=== PATIENT | female | born 1960 | race Caucasian/White ===

== ENCOUNTER 2023-11-24 19:47 | Emergency (ER) | payer OTHER, SELFPAY ==
[2023-11-24 19:52] VITALS: BP 164/92; PULSE 62; RESP 16; TEMP 36.1; O2SAT 95; BMI 23.8
--- NOTE | 2023-11-24 20:20 | CRLHL7_ITS ---
For Patients: As a result of the Century Cures Act, medical imaging exams and procedure reports are released immediately into your electronic medical record. You may view this report before your referring provider. If you have questions, please contact your health care provider. INDICATION: Left-sided abdominal pain. Nausea. TECHNIQUE: CT abdomen and pelvis acquired with 64 cc of Isovue 370 IV contrast. COMPARISON: None. FINDINGS: Lower chest: Unremarkable. Liver: Subcentimeter low-density in the left lobe likely represents an incidental cyst or hemangioma. Spleen: Unremarkable. Pancreas: Unremarkable. Gallbladder and bile ducts: No calcified stones or biliary ductal dilatation. Kidneys: Irregular 8 mm stone in the distal left ureter near the pelvic brim causes [id number] hydroureteronephrosis with urothelial enhancement and periureteral stranding. No focal renal parenchymal abnormality or perinephric fluid collection. Right kidney is unremarkable. Adrenal glands: Unremarkable. GI tract: Mild distal colonic diverticulosis without evidence of acute diverticulitis. Borderline dilated small bowel loops in the left abdomen anterior to the ureter may reflect mild ileus. No high-grade bowel obstruction. Normal appendix. No free air or free fluid. Lymph nodes: No pathologic lymphadenopathy. Vascular structures: Mild atherosclerotic disease. No abdominal aortic aneurysm. Pelvic Organs: Bladder as imaged is unremarkable. Hysterectomy. Bones: No acute or suspicious osseous abnormality. Degenerative changes at L5-S1 IMPRESSION: 1. Distal left ureteral stone measures 8 mm and causes mild to moderate hydroureteronephrosis. Urothelial enhancement and stranding may reflect superimposed infection. 2. No CT findings to strongly suggest pyelonephritis. No perinephric fluid collection. Dictated by Jass Webber MD @ 11/24/2023 9:25:45 PM Please note that all CT scans at this facility use dose modulation, iterative reconstruction, and/or weight-based dosing when appropriate to reduce radiation dose to as low as reasonably achievable. Dictated by: Jass Webber MD @ 11/24/2023 21:26:06 (Electronically Signed)
--- NOTE | 2023-11-24 20:21 | ED.ABDPAIN ---
HPI - Abdominal Pain General Chief Complaint: Abdominal Pain Stated Complaint: abdominal pain left side, vomiting Time Seen by Provider: 11/24/23 20:17 History of Present Illness HPI narrative: Patient is a 63-year-old woman comes in today with a 3-4 hours of crampy left-sided abdominal pain. She is prone to constipation and took some oral laxatives yesterday with good bowel movement this morning. However pain is become more severe in the left lower quadrant. She has had no nausea no vomiting no fevers no chills. She has no dysuria. Pain is localized to left lower quadrant and is dull. It seems to persist into her thigh and back. No other significant symptoms no recent travel. Related Data Home Medications ?Medication ?Instructions ?Recorded ?Confirmed bupropion HCl 150 mg tablet,12 hr 150 mg PO BID 11/24/23 11/24/23 sustained-release levothyroxine 100 mcg tablet 100 mcg PO DAILY 11/24/23 11/24/23 Allergies Allergy/AdvReac Type Severity Reaction Status Date / Time No Known Drug Allergies Allergy Verified 11/24/23 19:56 Review of Systems Status of ROS Reports: 10 or more systems reviewed and unremarkable except as noted in History and below Exam Narrative: Exam Narrative: EXAM GENERAL: Patient appears uncomfortable rolling back and forth in pain. EYES: No scleral icterus. ENT: Tympanic membranes and oropharynx normal. THYROID: no thyroid nodules or thyromegaly. LYMPH: No supraclavicular or cervical lymphadenopathy. SKIN: Visible skin seen during exam normal or with benign process only. EXT: No dependent lower extremity pedal edema. HEART: Regular rate and rhythm with no murmurs, rubs, or gallops. LUNGS: Clear to auscultation bilaterally with no crackles or wheezes. ABD: Soft, non tender, non distended. Minimal tenderness to palpation left lower quadrant rest of the abdominal exam is normal. PSYCH: Good eye contact, speech is not pressured. Const: Vital Signs, click to edit/add: Vital Signs - 24 hr 11/24/23 19:52 Temperature 97.0 F L Pulse Rate [Right Pulse Oximeter] 62 Respiratory Rate 16 Blood Pressure [Le ft Upper Arm] 164/92 H Pulse Oximetry 95 Oxygen Delivery Me thod Room Air Course Course ED Course: Patient is seen and examined. IV is placed normal saline given 4 mg of Zofran given 30 mg of Toradol given. UA CBC comprehensive metabolic panel amylase CT abdomen pelvis pending. Vital Signs Vital signs: Initial Vital Signs Temperature 97.0 F L 11/24/23 19:52 Temperature Source Temporal Artery Scan 11/24/23 19:52 Pulse Rate 62 11/24/23 19:52 Respiratory Rate 16 11/24/23 19:52 Blood Pressure 164/92 H 11/24/23 19:52 Blood Pressure Mean 116 H 11/24/23 19:52 Pulse Oximetry 95 11/24/23 19:52 Oxygen Delivery Method Room Air 11/24/23 19:52 Vital Signs Temperature 97.0 F L 11/24/23 19:52 Pulse Rate 62 11/24/23 19:52 Respiratory Rate 16 11/24/23 19:52 Blood Pressure 164/92 H 11/24/23 19:52 Pulse Oximetry 95 11/24/23 19:52 Oxygen Delivery Method Room Air 11/24/23 19:52 Temperature 97.0 F L 11/24/23 19:52 Pulse Rate 62 11/24/23 19:52 Respiratory Rate 16 11/24/23 19:52 Blood Pressure 164/92 H 11/24/23 19:52 Pulse Oximetry 95 11/24/23 19:52 Oxygen Delivery Method Room Air 11/24/23 19:52 Medications Administered Medications: Discontinued Medications Generic Name Dose Route Start Last Admin Trade Name Toni PRN Reason Stop Dose Admin Ketorolac Tromethamine 30 mg 11/24/23 20:20 11/24/23 20:52 Ketorolac 30 Mg/Ml Inj IVP 11/24/23 20:21 30 mg ONCE ONE Administration Ondansetron HCl 4 mg 11/24/23 20:20 11/24/23 20:53 Ondansetron 2 Mg/Ml Inj IVP 11/24/23 20:21 4 mg ONCE ONE Administration MDM - Abdominal Pain MDM Narrative Medical decision making narrative: Patient is a 63-year-old woman came in with exquisite left-sided abdominal pain. CT showed 8 mm kidney stone. I did give her L saline 4 of Zofran and 30 of Toradol. She has had complete resolution of her symptoms. At this time I did consider sending her home with Flomax and pain control however she is not interested in any further treatment as she has complete resolution of her symptoms. If her symptoms persist or she develops any new symptoms would recommend urology referral. All questions were answered patient will drink plenty of fluid and follow-up with her primary physician later this coming week. Lab Data Labs: Lab Results 11/24/23 Range/Units 20:35 WBC 10.46 (4.50-11.00) K/uL RBC 4.54 (4.00-5.20) m/uL Hgb 13.9 (12.0-16.0) gm/dL Hct 41.7 (33.0-51.0) % MCV 92 (80-100) fL MCH 31 (26-34) pg MCHC 33 (32-36) gm/dL RDW Coeff of Eliezer 13.1 (11.5-15.5) % Plt Count 352 (140-440) K/uL Neut % (Auto) 74.7 H (42.0-72.0) % Lymph % (Auto) 18.1 L (20-44) % Terrell % (Auto) 5.2 (0.0-11.0) % Eos % (Auto) 0.8 (0.0-7.0) % Baso % (Auto) 0.4 (0.0-3.0) % Neut # (Auto) 7.80 H (1.7-7.0) K/uL Lymph # (Auto) 1.90 (0.90-2.90) K/uL Terrell # (Auto) 0.50 (0.00-0.90) K/UL Eos # (Auto) 0.08 (0.00-0.50) K/uL Baso # (Auto) 0.04 (0.00-0.30) K/uL Abs Immat Gran (auto) 0.08 (0.00-0.30) K/uL Imm/Tot Granulo (auto) 0.8 % Sodium 135 (135-149) mmol/L Potassium 3.8 (3.6-5.1) mmol/L Chloride 103 (96-114) mmol/L Carbon Dioxide 24 (20-32) mmol/L Anion Gap 8 (7-15) mEq/L BUN 19 (7-30) mg/dL Creatinine 0.9 (0.5-1.5) mg/dL Estimated Creat Clear 46.13 Estimated GFR 72 ml/min Glucose 126 H (60-115) mg/dL Calcium 9.7 (8.4-10.6) mg/dL Total Bilirubin 0.9 (0.1-1.5) mg/dL AST 22 (12-35) U/L ALT 17 (4-35) U/L Alkaline Phosphatase 74 (40-150) U/L Total Protein 7.0 (6.0-8.3) g/dL Albumin 4.7 (3.3-5.0) g/dL Amylase 80 (18-89) U/L Discharge Plan Discharge Clinical Impression: Kidney stone Patient Disposition: Home, Self-Care Condition: Stable Instructions: Kidney Stones (ED) Additional Instructions: Drink plenty of fluids Tylenol Motrin Follow-up if symptoms recur. Activity Level: No Restrictions Discharge Diet: Regular Prescriptions: No Action bupropion HCl 150 mg tablet sustained-release 12 hr 150 mg PO BID levothyroxine 100 mcg tablet 100 mcg PO DAILY Follow Up/Referrals: Sarwat Rojas MD [Primary Care Provider] - Stand Alone Forms: [employer] Info Instructions
[2023-11-24] MEDS: KETOROLAC 30 MG/ML inj IVP (20:52)
[2023-11-24] MEDS: ONDANSETRON 2 MG/ML inj 4 MG IVP (20:53)
[2023-11-24 20:57] LABS: Chloride* 103 mmol/L (96-114)
[2023-11-24 20:58] LABS: Albumin* 4.7 g/dL (3.3-5.0); Potassium* 3.8 mmol/L (3.6-5.1); Sodium* 135 mmol/L (135-149)
[2023-11-24 21:00] LABS: Amylase* 80 U/L (18-89)
[2023-11-24 21:01] LABS: Alanine Aminotransferase* 17 U/L (4-35); Alkaline Phosphatase* 74 U/L (40-150); Anion Gap 8 mEq/L (7-15); Aspartate Amino Transferase* 22 U/L (12-35); Bilirubin Total* 0.9 mg/dL (0.1-1.5); Blood Urea Nitrogen* 19 mg/dL (7-30); Carbon Dioxide* 24 mmol/L (20-32); Creatinine* 0.9 mg/dL (0.5-1.5); Est. Creatinine Clearance* 46.13; Estimated Glomerular Filt Rate 72 ml/min; Glucose* 126 mg/dL (60-115)
[2023-11-24 21:02] LABS: Basophils Absolute Auto 0.04 K/uL (0.00-0.30); Basophils Percent Auto 0.4 % (0.0-3.0); Calcium* 9.7 mg/dL (8.4-10.6); Eosinophils Absolute Auto 0.08 K/uL (0.00-0.50); Eosinophils Percent Auto 0.8 % (0.0-7.0); Hematocrit 41.7 % (33.0-51.0); Hemoglobin* 13.9 gm/dL (12.0-16.0); Immature Granulocytes Abs Auto 0.08 K/uL (0.00-0.30); Immature Granulocytes Pct Auto 0.8 %; Lymphocytes Percent Auto 18.1 % (20-44); Mean Corpuscular HGB Conc 33 gm/dL (32-36); Mean Corpuscular Hemoglobin 31 pg (26-34); Mean Corpuscular Volume 92 fL (80-100); Monocytes Percent Auto 5.2 % (0.0-11.0); Neutrophils Percent Auto 74.7 % (42.0-72.0); Platelet Count* 352 K/uL (140-440); RDW Coefficient of Variation % 13.1 % (11.5-15.5); Red Blood Count 4.54 m/uL (4.00-5.20); White Blood Count* 10.46 K/uL (4.50-11.00)
[2023-11-24 21:03] LABS: Slide Review Reflex No
--- OUTSIDE RECORDS SUMMARY | 2023-11-24 21:24 | XMS_ITS | Clinical Summary ---
Author Organization [facility] Address [place], [place] [address] Care Team Providers Care Press Writer Name Role Phone Sarwat Gil MD Primary Care Provider [phone] Allergies No known active allergies Medications Medication Sig Dispensed Refills Start Date End Date Status levothyroxine (SYNTHROID) 100 mcg tabletIndications:Ac quired hypothyroidism Take 1 Tablet (100 mcg) by mouth once daily. 90 Tablet 3 10/01/2023 Active buPROPion (WELLBUTRIN SR) 150 mg Sustained-Release tabletIndications:To bacco use disorder Take 1 Tablet (150 mg) by mouth two times daily. To help quit smoking. 180 Tablet 11/13/2023 Active buPROPion (WELLBUTRIN SR) 150 mg Sustained-Release tabletIndications:To bacco use disorder 1 tab daily for 1st 3 days. Then increase to 1 tab twice daily. To help quit smoking. 180 Tablet 1 10/01/2023 Discontinue d(*Availabi lity/Formul rabia change/Cost of medication) Active Problems Problem Noted Date Diagnosed Date S/P hysterectomy 08/03/2022 Elevated fasting glucose 06/30/2019 Overview: June 2019: fasting 111, needs recheck. 2021: Glucose 81 and Hemoglobin a1c 5.6 Age-related osteoporosis wit hout current pathological fracture 07/01/2015 Overview: DEXA 06/2015: spine T-score -1.2 Jan 2022: DEXA scan showing osteoporosis of the lumbar spine. Hyperplastic colon polyp 11/28/2010 Overview: Colonoscopy 11/2010 polyp repeat in 10 years Rosacea 09/03/2008 Intrinsic atopic dermatitis 03/13/2005 Tobacco use disorder 01/06/2004 Overview: September 2023: Trying bupropion to help quit smoking. MENORRHAGIA 01/28/2002 HYPOTHYROIDISM NOS DEPRESSION, NEUROTIC Breast mass Overview: Atypical lobular hyperplasia (ALH) of left breast as of 2018: Breast cancer screening should be every 6 months mammogram and MRI alternating. Encounters Date Type Department Care Team Description 11/11/2023 Refill [facility] [address] [place] [address] Sarwat Gil MD Refill Request (Bupropion) 11/11/2023 Refill [facility] [address] [place] [address] Sarwat Gil MD Refill Request (Bupropion) 10/02/2023 9:15 AM CDT Orders Only [facility] [place] [address] [place] [address] Lab, [facility] 10/01/2023 8:20 AM CDT Ancillary Procedure [facility] [address] [place] [address] 10/01/2023 7:25 AM CDT Office Visit [facility] [address] [place] [address] Sarwat Gil MD Physical (AGE 63) 10/01/2023 Travel from Last 3 Months Immunizations Name Administration Dates Next Due AMB Influenza, IIV4 PF (=>6 mos Flulaval,Fluzone Fluarix)(Flu Clinic Only) 03/09/2015,02/17/2014 COVID-19 vaccine (Moderna 100mcg/0.5mL) PF, MDV 10/15/2020,09/17/2020 COVID-19 vaccine (Moderna Pacheco linda 50mcg/0.25mL) PF, MDV 09/23/2021 Influenza, IIV3 (Age >=3 years) 01/28/2010,06/10,03/13/2003 Influenza, IIV4 02/14/2022,,02/07/2019,01/29/20 18,01/30/2017,03/20/2016 Td (Age >=7 Years) 01/20/2022,03/13/2003 Tdap 01/03/2012 Zoster (Shingrix-RZV, recombinant) 02/16/2023, Family History Medical History Relation Name Comments Cancer-prostate Brother 2 Nephrolithiasis Brother 2 COPD Brother 3 Heart attack Brother 4 Kidney failure Brother 4 Other Father copd Heart Disease Mother at 82, chf Thyroid Disease Mother Thyroid Disease Sister 1 Suicidality Sister 2 Thyroid Disease Sister 2 COPD Sister 3 Cancer No Family History Cancer-breast No Family History Cancer-colon No Family History Cancer-ovarian No Family History Cancer-pancreatic No Family History Melanoma No Family History Relation Name Status Comments Brother 1 copd Alive Brother 2 Brother 3 Brother 4 Father Mother Sister 1 Sister 2 Sister 3 Social History Tobacco Use Types Packs/Day Years Used Date Smoking Tobacco: Every Day Cigarettes 1 40 Started: 11/25/1980; Last attempted to quit: 11/25/2020 Smokeless Tobacco: Never Tobacco Cessation:Ready to Q uit: Not Asked; Counseling Given: Not Answered Comments:nicorette gum Alcohol Use Standard Drinks/Week Comments Yes 15 (1 standard drink = 0.6 oz pure alcohol) 2020: approx 15 drinks a week. PHQ-2 Answer Date Recorded PHQ-2 TOTAL SCORE 0 10/01/2023 Social Connections Answer Date Recorded Frequency of Communication with Friends and Fami ly 0 10/01/2023 Financial Resource Strain Answer Date R ecorded Difficulty of Paying Living Expenses 3 10/01/2023 Difficulty of Paying Living Expenses Not on file 10/01/2023 Food Insecurity Answer Date Recorded Worried About Running Out of Food in the Last Ye ar 1 10/01/2023 Transportation Needs Answer Date Record ed Lack of Transportation (Medical) 1 10/01/2023 Housing Stability Answer Date Recorded Unable to Pay for Housing in the Last Year 1 10/01/2023 Sex and Gender Information Value Date Recorded Sex Assigned at Not on file Gender Identity Not on file Sexual Orientation Not on file Obstetrics History Para Term AB IAB SAB Ectopic Multiple Livin g Live Births 0 0 0 0 0 0 0 0 0 0 Last Filed Vital Signs Vital Sign Reading Time Taken Comments Blood Pressure 121/81 10/01/2023 7:22 AM CDT Pulse 69 10/01/2023 7:22 AM CDT Temperature 37.2 ??C (98.9 ??F) 01/04/2021 9:18 AM CD T Respiratory Rate 16 01/04/2021 9:18 AM CDT Oxygen Saturation 98% 10/01/2023 7:22 AM CDT Inhaled Oxygen Concentration - - Weight 57.1 kg (125 lb 14.4 oz) 10/01/2023 7:22 AM CDT Height 159.4 cm (5' 2.76) 10/01/2023 7:22 AM CD T Body Mass Index 22.48 10/01/2023 7:22 AM CDT Plan of Treatment Health Maintenance Due Date Last Done Comments Pneumococcal series for age 6-64 (1 of 2 - PCV) 08/31/[address] (for lung CA) age 50-80 08/31/2011 COVID-19 vaccine series ( season) 2023 09/23/2021, 10/15/2020, 09/17/2020 Influenza for age 50-64 01/13/2024 02/15/20, 02/11/2021, 02/07/2019, Additional history exists BMI (ht and wt on same day) for age 18+ 09/30/2024 10/01/2023, 01/20/2022, 01/11/2021, Additional history exists Mammogram for age 45-75 09/30/2024 10/01/19, 09/28/2022, 09/16/2021, Additional history exists Depression screening for age 12+ 10/01/2024 10/02/2023, 10/01/2023, 01/23/2022, Additional history exists HIV for age 15-65 10/05/2027 Postponed from 1976 (Patient discretion) Lipids for age 45-75 10/01/2028 10/02/2023, 01/11/2021, 06/24/2018, Additional history exists Colonoscopy through age 75 02/16/203102/16, 02/16/2021, 02/16/2021, Additional history exists Tetanus booster 01/21/2032 01/20/2022, 12/13, 03/13/2003 Tdap Completed 01/03/2012 Hepatitis C screening for age 18-79 Completed 06/30/2019 Zoster (shingles) series for age 50+ Completed 02/16/2023, 12/11/2022 Procedures Procedure Name Priority Date/Time Associated Diagnosis Comments VITAMIN D 25 (DEFICIENCY) Routine 10/02/2023 9:10 AM CDT Osteopenia of spine TSH Routine 10/02/2023 9:10 AM CDT Acquired hypothyroidism GLUCOSE, FASTING Routine 10/02/2023 9:10 AM CDT Elevated fasting glucose LIPID PANEL W REFLEX MEASURED LDL Routine 10/02/2023 9:10 AM CDT Screening cholesterol level XR MAMMO PRETTY BILAT SCREEN Routine 10/01/2023 8:30 AM CDT Encounter for screening mammogram for malignant neoplasm of breast COLONOSCOPY SCREENING Routine 02/16/2021 7:50 AM CDT Screen for colon cancer ANTI HCV Routine 06/30/2019 9:07 AM [employer] Need for hepatitis C screening test from Last 3 Months or Most Recently Relevant to Health Maintenance Results * (ABNORMAL) LIPID PANEL W REFLEX MEASURED LDL (10/02/2023 9:10 AM CDT) CHOLESTEROL,TOTAL 212(H) 100 - 199 mg/dL 10/02/2023 7:22 PM CDT [facility] Comment: Cholesterol, Total Reference Ranges Desirable <200 mg/dL Borderline 200-239 mg/dL High >=240 mg/dL TRIGLYCERIDES 111 <150 mg/dL 10/02/2023 7:22 PM CDT [facility] HDL CHOLESTEROL 78 >40 mg/dL 7:22 PM CDT [facility] NON-HDL CHOLESTEROL 134 <145 mg/dl 10/02/2023 7:22 PM CDT [facility] CHOL/HDL RATIO 2.72 <4.50 10/02/2023 7:22 PM CDT [facility] LDL CHOLESTEROL 112 <=130 mg/dL 10/02/2023 7:22 PM CDT [facility] VLDL CHOLESTEROL 22 <=30 mg/dL 10/02/2023 7:22 PM CDT [facility] PROVIDER ORDERED STATUS FASTING 10/02/2023 7:22 PM CDT [facility] Blood BLOOD SPECIMEN / Unknown Venipuncture / Unknown 10/02/2023 9:10 AM CDT 10/02/2023 9:11 AM CDT Sarwat Gil MD CHEMISTRY Performing Organization Address City/State/[facility] Co de Phone Number [facility] [address] [place] [address] * (ABNORMAL) VITAMIN D 25 (DEFICIENCY) (10/02/2023 9:10 AM CDT) [facility] VITAMIN D TOTAL 87.5(H) 20.0 - 80.0 ng/mL 10/02/2023 7:26 PM CDT [facility] Blood BLOOD SPECIMEN / Unknown Venipuncture / Unknown 10/02/2023 9:10 AM CDT 10/02/2023 9:11 AM CDT Narrative [facility] - 10/02/2023 7:26 PM CDT ? Vitamin D Status Deficiency: ? <20 ng/mL Insufficiency: ?20-29 ng/mL Sufficiency: ?30-80 ng/mL Possible Toxicity: ??>80 ng/mL Based on [place] of [employer] recommendations Biotin supplements may cause clinically significant interference for this test assay. ??If interference is suspected, it is strongly recommended that biotin is discontinued for at least one week prior to retesting. Sarwat Gil MD SEND OUTS [facility] [address] [place] [id number], * TSH (10/02/2023 9:10 AM CDT) TSH 1.65 0.27 - 4.20 uIU/mL 10/02/2023 7:22 PM CDT [facility] Blood BLOOD SPECIMEN / Unknown Venipuncture / Unknown 10/02/2023 9:10 AM CDT 10/02/2023 9:11 AM CDT Narrative [facility] - 10/02/2023 7:22 PM CDT In Adults, TSH values between 5.00 and 10.00 uIU/ml do not necessarily indicate the presence of Hypothyroidism. Correlation with clinical findings such as presence of goiter and/or Thyroperoxidase (TPO) Antibody may be helpful. For more information please refer to ESTRELLITA 2004; 291: 228-238. Sarwat Gil MD CHEMISTRY [facility] [address] [address], * GLUCOSE, FASTING (10/02/2023 9:10 AM CDT) GLUCOSE 90 70 - 99 mg/dL 10/02/2023 9:49 AM CDT [facility] Blood BLOOD SPECIMEN / Unknown Venipuncture / Unknown 10/02/2023 9:10 AM CDT 10/02/2023 9:11 AM CDT Sarwat Gil MD CHEMISTRY [facility] [address] [place] [address], * XR MAMMO PRETTY BILAT SCREEN (10/01/2023 8:30 AM CDT) Anatomical Region Laterality Modality BREASTS, Breast Left, Breast Right Bilateral Mammography Impressions 10/01/2023 3:50 PM CDT ??There is no radiographic evidence for malignancy. ??Recommend annual mammograms. MAMMOGRAM ASSESSMENT: ??ACR 1 Negative PATIENTS: You will also receive a letter with your examination results in an easy to read format. ??If you have questions about your results, please contact your referring provider. Narrative 10/01/2023 3:50 PM CDT For Patients: As a result of the Century Cures Act, medical imaging exams and procedure reports are released immediately into your electronic medical record. You may view this report before your referring provider. If you have questions, please contact your health care provider. XR MAMMO PRETTY BILAT SCREEN [[id number]] CLINICAL HISTORY: ??This is an asymptomatic 63 y.o. patient. INDICATION FOR EXAM: Mammogram Screening. TECHNIQUE: CC & MLO views were obtained. ??This study was evaluated with the assistance of Computer-Aided Detection. Breast Tomosynthesis was used in interpretation. COMPARISON FILM: Yes 09/28/22 [facility] 09/16/21 [facility] FINDINGS: ??The breasts are heterogeneously dense, which may obscure small masses. There are no dominant masses, suspicious micro calcifications or areas of architectural distortion. Sarwat Gil MD MAMMO * COLONOSCOPY (02/16/2021 7:48 AM CDT) 02/16/2021 7:48 AM CDT Narrative Transcriptions Kartik Garza MD - 02/16/2021 9:07 AM CDT Patient Name: Manju Cervantes Procedure Date: 02/16/2021 Gender: Female Date of : 1960 Admit Type: Outpatient Procedure: Colonoscopy Proceduralist: Kartik Garza MD , Makenzie Beckman RN(Nurse) Referring MD: Sarwat Gil Indications/Pre-Op Diagnosis: Screening for colorectal malignant neoplasm, Last colonoscopy: November 2010 Medications: Fentanyl 100 micrograms IV, Midazolam 4 mgIV, The level of sedation administered wasmoderate Procedure Description: The patient had risks, benefits and alternatives explained to andgave informed consent. The patient had a stable cardiopulmonary status and judged an adequate candidate for conscious sedation. The colonoscope was passed through the anus and advanced to thececum, identified by appendiceal orifice and ileocecal valve. Thecolonoscopy was performed without difficulty. The patient tolerated the procedure well. The quality of the bowel preparation was good. The ileocecal valve, appendiceal orifice, and rectum were photographed. Complications: No immediate complications. Estimated Blood Loss & Specimen: Estimated blood loss: none. Estimated blood loss: none. Specimen collected - None Findings: The perianal and digital rectal examinations were normal. A few small-mouthed diverticula were found in the sigmoid colon. The exam was otherwise without abnormality on direct and retroflexion views. Impressions/Post-Op Diagnosis: - Diverticulosis in the sigmoid colon. - The examination was otherwise normal on direct and retroflexionviews. - No specimens collected. Recommendation: - Patient has a contact number available for emergencies. The signsand symptoms of potential delayed complications were discussed with the patient. Return to normal activities tomorrow. Written discharge instructions were provided to the patient. - Resume previous diet. - Continue present medications. - Repeat colonoscopy in 10 years for screening purposes. Moderate Sedation: Moderate (conscious) sedation was administered by the endoscopy nurse and supervised by the endoscopist. The following parameters were monitored: oxygen saturation, heart rate, respiratory rate, blood pressure, adequacy of pulmonary ventilation and reponse to care. Please refer to the patient's medical record flowsheets and nursing notes for moderate sedation details. Total physician intraservice time was 14 minutes. Kartik Garza MD 02/16/2021 9:07:05 AM This report has been signed electronically. Note Initiated On: 02/16/2021 7:48 AM Procedure Code(s): --- Professional --- 33936, Colonoscopy, flexible; diagnostic, including collection of specimen(s) bybrushing or washing, when performed (separateprocedure) Diagnosis Code(s): --- Professional --- Z12.11, Encounter for screening formalignant neoplasm of colon K57.30, Diverticulosis of large intestine without perforation or abscess withoutbleeding CPT copyright 2020 [employer]. All rights reserved. The codes documented in this report are preliminary and upon real time analyst reviewmay be revised to meet current compliance requirements. Scope In: 8:46:09 AM Scope Withdrawal Time 0 hours 7 minutes 4 seconds Scope Out: 8:58:43 AM Kartik Garza MD PROCEDURE ORD * ANTI HCV (06/30/2019 9:07 AM [employer]) HEPATITIS C ANTIBODY Non-React evens Non-React evens 06/30/2019 5:51 PM [employer] [facility] Comment:Antibodies to HCV no t detected; does not exclude the possibility of exposure to HCV. Blood BLOOD SPECIMEN / Unknown Venipuncture / Unknown 06/30/2019 9:07 AM [employer] 06/30/2019 9:07 AM [employer] Sarwat Gil MD SEND OUTS [facility] [address] [place] [address], [place] from Last 3 Months or Most Recently Relevant to Health Maintenance Advance Directives * Full Code (Latest Code Status on File) Date Activated Date Inactivated Comments 01/22/2017 10:51 AM 01/22/2017 5:50 PM Care Teams Press Writer Relationship Specialty Start Date End Date Sarwat Gil MD [address] [place] [address] PCP - General Family Practice 09/15/22
--- OUTSIDE RECORDS SUMMARY | 2023-11-24 21:25 | XMS_ITS | Patient Health Record ---
Author Organization [facility] Address [address] [place] [address] Care Team Providers Care Detective Supervisor Name Role Phone Gisela, Bertha Primary Care Provider Allergies Allergen (clinical drug ingredient) Drug/Non Drug Allergy documented on EMR Reaction Allergy Type Onset Date Status levothyroxine Levothyroxine hot flashes Drug Allergy Active Reason For Referral No Information Medications Medication SIG (Take, Route, Fr equency, Duration) Notes Start Date End Date Status Synthroid 88 MCG 1 tablet in the morn ing on an empty stomach Orally Once a day for 90 days Active Social History Tobacco Use: Social History Observation Description Date Details (start date - stop date) Former Smoker NA - NA Tobacco Use/Smoking Question Answer Notes Are you a former smoker How long has it been since you last smoked? < 1 month Problems Problem Type SNOMED Code ICD Code Onset Dates Problem Status W/U Status Risk Notes Problem [id number] Hypothyroidism (acquired) (E03.9) Active confirmed Plan Of Treatment No Information Insurance Providers Payer Name Payer Address Payer Phone Subscriber Number Group Number Insured Name Patient Relationship to Insured Coverage Start Date Coverage End Date [facility] [employer] [address] [address] [place] [address] [id number] [phone] Manju Cervantes Self - patient is the insured 0 Medical (General) History Medical History History ICD Code Hypothyroidism Atypical breast cells Surgical History Surgery Date(Month/Year) HYSTERECTOMY RIGHT FOOT cluster removed both breasts
[2023-11-24] MEDS: 0.9 % SODIUM CHLORIDE 1000 ml 1,000 ML IV (21:30)
== END 2023-11-24 23:18 | disposition home or self-care (01) ==
PROVIDERS: Emergency Provider Internal Medicine; PCP Family Medicine
DX: N20.0 Calculus of kidney (principal)
CPT/HCPCS: 36415; 74177; 80053; 81003; 82150; 85025; 96374; 96375; 99283; 99284; J1885; J2405; J7030; Q9967